=== PATIENT | male | born 1985 | race Hispanic/Latino ===

== ENCOUNTER 2024-11-12 20:34 | Emergency (ER) | payer SELFPAY ==
--- NOTE | ~2024-11-12 | CT_ITS ---
CT of the Abdomen and Pelvis: Indication: Abdominal pain, fever Technique: 2.5 mm axial scans were obtained through the abdomen and pelvis following intravenous adm inistration of 100 cc of Omnipaque 350. Dose reduction technique was used on this scan by utilizing a utomated exposure control and iterative reconstruction technique. The dose-length product (DLP) was 1 598.89 mGy-cm. Findings: Scans through the lung bases are unremarkable. Several small hepatic cysts are present. The spleen, pancreas, gallbladder, adrenals and right kidney are within normal limits. Small nonobstructing left lower pole renal stones are present. No evidence of aortic aneurysm. No lymphadenopathy. No bowel obstruction or bowel wall thickening. There is no evidence to suggest acute appendicitis. Images through the pelvis were performed. Urinary bladder unremarkable. No pelvic mass seen. No ascit es. Impression: No acute abnormality. Small left lower pole nonobstructing renal stones. Reviewed, dictated and finalized at [facility]. Impression: No acute abnormality. Small left lower pole nonobstructing renal stones.
[2024-11-12 20:46] VITALS: BP 102/56; PULSE 98; RESP 18; TEMP 38; O2SAT 99
[2024-11-13 01:27] VITALS: TEMP 38.1
[2024-11-13 01:44] VITALS: RESP 16; O2SAT 99
[2024-11-13] MEDS: ACETAMINOPHEN 500 MG TABLET 1000 MG PO (01:45)
--- NOTE | 2024-11-13 01:52 | ED_ITS ---
HPI - Fever General Chief Complaint: Fever Stated Complaint: fever, diarrhea, PEREA, body aches Time Seen by Provider: 11/13/24 01:24 History of Present Illness HPI Narrative: 39-year-old otherwise healthy male presenting to the emergency department with generalized abdominal pain, fever, chills, diarrhea and a fever at home of 102? F. He took Tylenol prior to arrival. States he feels much improved now but still has a fever. States he has had some intermittent abdominal cramping for last few days that response to Pepto-Bismol. Feels better after diarrheal episodes. No recent antibiotic use, no recent illnesses or infections. No recent hospitalizations. Was otherwise in his normal state of health. No chest pain, shortness of breath, nausea, vomiting, back pain, urinary complaints. No recent sick contacts or anyone around with similar symptoms. Related Data Allergies Allergy/AdvReac Type Severity Reaction Status Date / Time No Known Allergies Allergy Verified 11/12/24 20:35 Review of Systems 2 Review of Systems: As reviewed above in HPI Exam 2 Narrative: GENERAL: [Well-appearing, well-nourished, and in no acute distress.] HEAD: [Normocephalic, atraumatic.] EYES: [PERRLA and EOMI.] ENT: Nares clear, no rhinorrhea or epistaxis. Mucous membranes moist. NECK: Supple. CHEST: [Clear to auscultation. No respiratory distress.] HEART: [Regular rate and rhythm]. No murmur heard. [Normal peripheral pulses.] ABDOMEN: [Soft, nondistended], [nontender], [No rigidity or guarding] EXTREMITIES: Normal range of motion. [No edema.] SKIN: Warm, dry, no rash. NEURO: [No focal deficits]. Alert and oriented [x3.] PSYCH: [Normal mood and affect.] Course Vital Signs Vital signs: Vital Signs Temperature 38.0 C H 11/12/24 20:46 Pulse Rate 98 11/12/24 20:46 Respiratory Rate 18 11/12/24 20:46 Blood Pressure 102/56 L 11/12/24 20:46 Pulse Oximetry 99 11/12/24 20:46 Temperature 38.1 C H 11/13/24 01:27 Pulse Rate 87 11/13/24 02:27 Respiratory Rate 18 11/13/24 02:27 Blood Pressure 111/63 11/13/24 02:27 Pulse Oximetry 98 11/13/24 02:27 MDM - Fever MDM Narrative Medical decision making narrative: 39-year-old otherwise healthy male presenting to the emergency department with generalized abdominal pain, fever, chills, diarrhea and a fever at home of 102? F. He took Tylenol prior to arrival. States he feels much improved now but still has a fever. States he has had some intermittent abdominal cramping for last few days that response to Pepto-Bismol. Feels better after diarrheal episodes. No recent antibiotic use, no recent illnesses or infections. No recent hospitalizations. Was otherwise in his normal state of health. No chest pain, shortness of breath, nausea, vomiting, back pain, urinary complaints. No recent sick contacts or anyone around with similar symptoms. Patient has a reassuring examination with a soft nontender nondistended abdomen, he states he is feeling much better after the Tylenol and his fever did come down to 38.0. He is 99% on room air, no tachypnea or tachycardia. Laboratory studies were obtained the same including CBC, CMP, urinalysis and lipase. Given a fluid bolus an additional Tylenol given his last dose was at home numerous hours ago. Re-evaluated after interventions. Patient CT scan shows no evidence of any bowel obstruction but he does have mucosal prominence and hyperenhancement in the colon suggestive of acute colitis. No intra-abdominal fluid, normal caliber appendix, no pneumoperitoneum or pneumatosis. Patient is febrile but pain is under control and hemodynamically stable. Will be treated with a course of antibiotics given his infection findings and will have to follow up with his primary care provider and also provided return precautions. Medical Records Attestation: I reviewed the patient's medical records. Lab Data Attestation: I reviewed the patient's lab results. 11/13/24 01:53 11/13/24 01:53 Labs: Lab Results 11/13/24 Range/Units 01:53 WBC 12.6 H (4.5-10.0) K/mm3 RBC 4.62 (4.6-6.20) M/mm3 Hgb 15.0 (14.0-18.0) g/dL Hct 45.7 (42.0-52.0) % MCV 98.9 (80-100) fl MCH 32.5 (26-34) pg MCHC 32.8 (32-36) g/dl RDW 12.8 (11.5-14.5) % Plt Count 216 (150-375) k/mm3 MPV 9.5 (7.4-10.4) fl Immature Gran % (Auto) 0.3 (0-0.5) % Neut % (Auto) 84.7 H (45.5-73.1) % Lymph % (Auto) 10.0 L (18.3-44.2) % [place] % (Auto) 4.8 (2.6-8.5) % Eos % (Auto) 0.0 (0-4.4) % Baso % (Auto) 0.2 (0.2-1.2) % Lymph # (Auto) 1.26 (0.9-3.2) K/mm3 [place] # (Auto) 0.6 (0.1-0.6) K/mm3 Eos # (Auto) 0.0 (0-0.3) K/mm3 Baso # (Auto) 0.0 (0.0-0.1) K/mm3 Abs Immat Gran (auto) 0.04 H (0.00-0.031) K/mm3 Absolute Neuts (auto) 10.7 H (1.3-6.7) K/mm3 Absolute Nucleated RBC 0.000 (0.0-0.012) K/mm3 Nucleated RBC % 0.0 (0.0-0.2) % Sodium 135 L (137-145) mmol/L Potassium 3.6 (3.4-5.0) mmol/L Chloride 101 (98-107) mmol/L Carbon Dioxide 27 (22-30) mmol/L Anion Gap 7 (4-12) mmol/L BUN 9 (9-20) mg/dL Creatinine 1.07 (0.7-1.3) mg/dL Estim Creat Clear Calc 96 ml/min Estimated GFR > 60 (59 - ) Glucose 116 H (65-110) mg/dL Calcium 9.0 (8.4-10.2) mg/dL Magnesium 2.2 (1.6-2.3) mg/dL Total Bilirubin 1.0 (0.2-1.3) mg/dL AST 29 (17-59) U/L ALT 24 (6-50) U/L Alkaline Phosphatase 69 (38-126) U/L Total Protein 7.8 (6.3-8.2) g/dL Albumin 4.2 (3.5-5.1) g/dL Urine Color Dark yellow (Yellow) Urine Appearance Clear (Clear) Urine pH 5.5 (5.0-9.0) Ur Specific [place] 1.033 (1.001-1.035) Urine Protein 1+ H (Negative) mg/dL Urine Glucose (UA) Negative (Negative) mg/dL Urine Ketones Trace H (Negative) mg/dL Ur Blood (Man) Trace (Negative) Urine Nitrate Negative (Negative) Urine Bilirubin Negative (Negative) Urine Urobilinogen 1.0 (<2.0) mg/dL Add Ur Microanalysis Reviewed Leukocyte Esterase Rfl Negative (Negative) MARY/UL Urine RBC 6-10 H (0-2) /hpf Urine WBC 0-5 (0-3) /hpf Ur Squamous Epith Cells None seen (Few) /hpf Urine Bacteria None seen /hpf Urine Casts 0-2 Influenza A (RT-PCR) Negative (Negative) Influenza B (RT-PCR) Negative (Negative) RSV (RT-PCR) Negative (Negative) SARS-CoV-2 RNA (RT-PCR) Negative (Negative) Imaging Data Attestation: I personally reviewed and interpreted this imaging study as follows: My impression: Acute colitis Discharge Plan Discharge Clinical Impression: Acute colitis, Fever Patient Disposition: Home Condition: Stable Instructions: Antibiotic Form, Colitis (ED) Additional Instructions: Your CT scan shows some intestinal inflammation consistent with colitis and combined with your fever and mildly elevated white count we will treat this as a presumed infection. We will send you home with 2 different antibiotics to take for the next several days. Take Tylenol and ibuprofen for fever and pain control. Follow-up with regular doctor. Return with any emergent concerns at any time. Patient Language: Moroccan Prescriptions: New ciprofloxacin HCl [Cipro] 500 mg tablet 500 mg PO Q12H 5 Days Qty: 10 0RF metronidazole 500 mg tablet 500 mg PO Q8H 5 Days Qty: 15 0RF Follow-up/Referrals: [facility] [Primary Care Provider] - Time of Disposition: 04:39
[2024-11-13 02:14] LABS: Hematocrit 45.7 % (42.0-52.0); Hemoglobin 15.0 g/dL (14.0-18.0); Immature Granulocyte Percent A 0.3 % (0-0.5); Lymphocytes Absolute Auto 1.26 K/mm3 (0.9-3.2); Mean Corpuscular HGB Conc 32.8 g/dl (32-36); Mean Corpuscular Hemoglobin 32.5 pg (26-34); Mean Corpuscular Volume 98.9 fl (80-100); Nucleated Red Blood Cells Absolute Auto 0.000 K/mm3 (0.0-0.012); Nucleated Red Blood Cells Perc 0.0 % (0.0-0.2); Platelet Count Result 216 k/mm3 (150-375); Red Blood Count 4.62 M/mm3 (4.6-6.20); White Blood Count 12.6 K/mm3 (4.5-10.0)
[2024-11-13 02:27] VITALS: BP 111/63; PULSE 87; RESP 18; O2SAT 98
[2024-11-13 02:28] LABS: Add Urine Microscopic? YES; Appearance Urine Clear (Clear); Glucose Urine UA Negative (Negative); Leukocyte Esterase Ur Negative LEU/UL (Negative); Need Manual Microscopic Reviewed; Nitrate Urine Negative (Negative); Non Pathogenic Casts 0-2; Specific Grav Ur 1.033 (1.001-1.035)
[2024-11-13 02:32] LABS: Alanine Aminotransferase 24 U/L (6-50); Albumin Level 4.2 g/dL (3.5-5.1); Alkaline Phosphatase 69 U/L (38-126); Anion Gap 7 mmol/L (4-12); Aspartate Amino Transferase 29 U/L (17-59); Bilirubin,Total 1.0 mg/dL (0.2-1.3); Blood Urea Nitrogen 9 mg/dL (9-20); Calcium 9.0 mg/dL (8.4-10.2); Carbon Dioxide 27 mmol/L (22-30); Chloride 101 mmol/L (98-107); Estimated CRCL calculation 96 ml/min; Estimated Glomerular Filt Rate > 60; Glucose 116 mg/dL (65-110); Magnesium 2.2 mg/dL (1.6-2.3); Potassium 3.6 mmol/L (3.4-5.0); Sodium 135 mmol/L (137-145); Total Protein 7.8 g/dL (6.3-8.2)
[2024-11-13] MEDS: LACTATED RINGERS 1,000 ML 999 ML IV CONT (02:41)
[2024-11-13 02:47] LABS: Influenza A QL RT-PCR Negative (Negative); Influenza B QL RT-PCR Negative (Negative); RSV RNA, RT-PCR Negative (Negative); SARS-CoV-2 RNA PCR Negative (Negative)
[2024-11-13] MEDS: CIPROFLOXACIN 500 MG TAB PO (04:56)
[2024-11-13 04:59] VITALS: BP 136/66; PULSE 81; RESP 16; O2SAT 100
[2024-11-13 05:03] VITALS: BP 113/66; PULSE 81; RESP 16; TEMP 37.5; O2SAT 100
== END 2024-11-13 05:05 | disposition home or self-care (01) ==
PROVIDERS: Emergency Provider Student in an Organized Health Care Education/Training Program
DX: K52.9 Noninfective gastroenteritis and colitis, unspecified (principal); R50.9 Fever, unspecified; Z20.822 Contact with and (suspected) exposure to COVID-19
CPT/HCPCS: 36415; 74177; 80053; 81001; 83735; 85025; 87637; 96360; 99284; A9270; J7120; Q9967